=== PATIENT | female | born 1995 | race Caucasian/White ===

== ENCOUNTER 2017-05-10 16:38 | Emergency (ER) | payer OTHER ==
[~2017-05-10] VITALS: Ht 167.6 cm; Wt 62.5 kg
[~2017-05-10 16:38] MED LIST: CEPH-443 PO; ONDA4TAB14 PO
[2017-05-10 16:55] VITALS: Ht 167.6 cm; Wt 62.5 kg
--- NOTE | 2017-05-10 17:12 | ERA ---
ER Documentation Chief Complaint Date/Time DATE: 05/10/17 TIME: 17:11 Chief Complaint SINGH X5 DAYS, HPI The patient is a 22-year-old female, presenting with right lateral temporal headache intermittently for the last 5 days, denies any fever, blurred vision, facial pain, phonophobia, photophobia, nausea, vomiting, dysuria, diarrhea. She does not smoke nor drink 1 Past medical/surgical history: None ROS All systems reviewed and are negative except as per history of present illness. Medications Home Meds Active Scripts Acetaminophen* (Tylenol*) 325 Mg Tablet, 2 TAB PO Q6 Y for PAIN AND OR ELEVATED TEMP, #20 TAB Prov:ALAN SCHWARTZ MD 05/10/17 Cephalexin* (Keflex*) 500 Mg Capsule, 500 MG PO QID for 10 Days, CAP Prov:SAUL ECHEVARRIA NP 04/19/17 Ondansetron (Ondansetron Odt) 4 Mg Tab.rapdis, 4 MG PO Q6H Y for NAUSEA AND/OR VOMITING, #10 TAB Prov:BENJI MARQUEZ NP 08/02/16 Allergies Allergies: Coded Allergies: No Known Allergy (Unverified , 04/18/17) PMhx/Soc History of Surgery: No Anesthesia Reaction: No Hx Neurological Disorder: No Hx Respiratory Disorders: No Hx Cardiac Disorders: No Hx Psychiatric Problems: Yes (Anxiety) Hx Miscellaneous Medical Probl: No Hx Alcohol Use: No Hx Substance Use: No Hx Tobacco Use: No Physical Exam Vitals Vital Signs Date Time Temp Pulse Resp B/P Pulse Ox O2 Delivery O2 Flow Rate FiO2 05/10/17 16:55 98.8 88 18 116/54 99 Physical Exam Const: No acute distress. Head: Atraumatic. Eyes: Normal Conjunctiva. ENT: Normal External Ears, Nose and Mouth.No facial tenderness, bilateral tympanic membrane and oropharynx are within normal limit Neck: Full range of motion. No meningismus. Resp: Clear to auscultation bilaterally. Cardio: Regular rate and rhythm. Abd: Soft, non distended, normal bowel sounds, non tender. Skin: No petechiae or rashes. Back: No midline or flank tenderness. Ext: No cyanosis, or edema. Neur: Awake and alert. No focal deficit Psych: Normal Mood and Affect. Results 24 hrs Current Medications Medications (Trade) Dose Ordered Sig/Penny Route PRN Reason Start Time Stop Time Status Last Admin Dose Admin Acetaminophen (Tylenol Tab) 650 mg ONCE ONCE PO 05/10/17 18:00 05/10/17 18:01 Procedures/MDM MEDICAL MAKING DECISION: The patient is a 32-year-old female, presenting with acute cephalgia of unclear etiology. She was treated with Tylenol 650 mg p.o. with good response. The differential diagnoses considered include but are not limited to subarachnoid hemorrhage, occult trauma, CVA, meningitis, encephalitis, hypertension, tension, migraine, cluster, narcotic withdrawal, cervical spine disease. Departure Diagnosis: Primary Impression: Headache Condition: Good Comments Sore discharged with Tylenol I discussed the findings with the patient. I advised the patient to follow-up with the primary physician in about 1-2 days, sooner if needed and return if any concern. ALAN SCHWARTZ MD May 10, 2017 17:12
[2017-05-10] MEDS ORDERED: ACET325T33 PO (17:34)
[2017-05-10] MEDS ORDERED: ACETAMINOPHEN 325 MG TAB PO ONE (18:00)
== END 2017-05-10 17:51 | disposition home or self-care (01) ==
LOC: FTE 16:38
DX: O99.89 Other specified diseases and conditions complicating pregnancy, childbirth and the puerperium (principal); R51 Headache; Z3A.10 10 weeks gestation of pregnancy
CPT/HCPCS: Z7502; Z7610; 99283

== ENCOUNTER 2017-09-09 23:01 | Outpatient (CLI) | END 2017-09-10 02:58 | disposition home or self-care (01) ==

== ENCOUNTER 2017-09-10 02:53 | Emergency (ER) | END 2017-09-10 05:02 | disposition home or self-care (01) ==

== ENCOUNTER 2017-11-25 17:00 | Inpatient (IN) | END 2017-11-29 11:00 | disposition home or self-care (01) | DRG 775 ==

== ENCOUNTER 2019-04-10 18:33 | Emergency (ER) | payer OTHER ==
[~2019-04-10] VITALS: Ht 167.6 cm; Wt 59.4 kg
[~2019-04-10 18:33] MED LIST changes: +ACET500C5 PO; -CEPH-443 PO; +GUAI-637 PO; +IBUP-1542 PO; +PREN1TAB79 PO
[2019-04-10 18:36] VITALS: BP 133/60; PULSE 76; RESP 19; Ht 167.6 cm; Wt 59.4 kg
--- NOTE | 2019-04-10 20:36 | ERD ---
ER Documentation Chief Complaint Chief Complaint N/V AFTER DRINKING; STATES DRANK ALOT LAST NIGHT; A&OX4 HPI This is a 24-year-old female presenting to the emergency department complaining of nausea and vomiting which began this morning. Patient states she did drink significant amount of alcohol last night. She had about 4 shots of vodka. Today she had 6 episodes of nonbilious, nonbloody emesis. Symptoms are moderate severity. She tried [id number] medication with some relief. She denies any diarrhea, fevers, severe abdominal pain, or other symptoms at this time. ROS All systems reviewed and are negative except as per history of present illness. Medications Home Meds Active Scripts Ondansetron (Ondansetron Odt) 4 Mg Tab.rapdis, 4 MG PO Q6H PRN for NAUSEA AND/OR VOMITING, #10 TAB Prov:VIET POSADA PA-C 04/10/19 Ibuprofen* (Ibuprofen*) 600 Mg Tablet, 600 MG PO Q6, #60 TAB 0 Refills Prov:ADIEL FIELDS MD 11/28/17 Guaifenesin* (Robitussin*) 100 Mg/5 Ml Syrup, 100 MG PO Q4H PRN for COUGH for 3 Days, #100 ML Prov:KARINA,PHANI 09/10/17 Acetaminophen* (Tylophen*) 500 Mg Capsule, 2 CAP PO Q8H PRN for PAIN AND OR ELEVATED TEMP, #20 CAP Prov:KARINA,PHANI 09/10/17 Reported Medications Vit W-Ca,Fe,FA(<1 mg) ( Vitamins) 1 Each Tablet, 1 EACH PO DAILY, TAB 09/10/17 Allergies Allergies: Coded Allergies: No Known Allergy (Unverified , 11/25/17) PMhx/Soc Medical and Surgical Hx: pt denies Medical Hx, pt denies Surgical Hx History of Surgery: No Anesthesia Reaction: No Hx Neurological Disorder: No Hx Respiratory Disorders: No Hx Cardiac Disorders: No Hx Psychiatric Problems: Yes (Anxiety) Hx Miscellaneous Medical Probl: Yes (CURRENTLY ) Hx Alcohol Use: Yes Hx Substance Use: No Hx Tobacco Use: No Smoking Status: Never smoker FmHx Family History: No diabetes Physical Exam Vitals Vital Signs Date Temp Pulse Resp B/P (MAP) Pulse Ox O2 O2 Flow FiO2 Time Delivery Rate 04/10/19 99.0 76 19 133/60 100 18:36 (84) Physical Exam Const: No acute distress Head: Atraumatic Eyes: Normal Conjunctiva ENT: Normal External Ears, Nose and Mouth. Neck: Full range of motion. No meningismus. Resp: Clear to auscultation bilaterally Cardio: Regular rate and rhythm, no murmurs Abd: Soft, non tender, non distended. Normal bowel sounds. No rebound tenderness or guarding. No McBurney's point tenderness. No active vomiting. Skin: No petechiae or rashes Back: No midline or flank tenderness Ext: No cyanosis, or edema Neur: Awake and alert Psych: Normal Mood and Affect Procedures/MDM 24-year-old female presenting to the emergency department complaining of about 6 episodes of vomiting today after having 4 shots of vodka yesterday. Patient is nontoxic and well-appearing. Her abdominal examination is completely benign. Her vital signs are stable. She is afebrile. She was not actively vomiting on exam. Medical decision making: Laboratory investigation seemed inappropriate because: Pt seemed well hydrated, systemically stable, and without evidence of acute anemia, kidney disease, liver disease, pancreatitis, or electrolyte imbalance. Abdominal Ct Risks and Benefits: CT Scan of the abdomen was discussed with all present and we agree at this time that a trial of watchful waiting is most appropriate. As the patient shows no evidence at this time of acute abdomen. I doubt bowel obstruction. I doubt esophageal rupture. I doubt acute surgical abdomen or other emergent process. Patient stable and appropriate for discharge and further outpatient management with prescription for Zofran. Patient advised to return immediately for any new or concerning symptoms. She can otherwise follow-up with her primary care physician within the next 1 to 2 days. The patient was in agreement with the diagnosis, plan, need for follow-up, and re turn precautions. Departure Diagnosis: Primary Impression: Nausea and vomiting Vomiting type: unspecified Vomiting Intractability: non-intractable Qualified Codes: R11.2 - Nausea with vomiting, unspecified Condition: VIET Morocho PA-C Apr 10, 2019 20:36
== END 2019-04-10 21:02 | disposition home or self-care (01) ==
LOC: FTE 18:33
DX: R11.2 Nausea with vomiting, unspecified (principal)
CPT/HCPCS: 99283